=== PATIENT | male | born 1950 | race Hispanic/Latino ===

== ENCOUNTER → 2022-06-15 | Outpatient (CLI) | payer OTHER | END | disposition home or self-care (01) | LOC: RAH 13:40 | PROVIDERS: ATTEND Internal Medicine Cardiovascular Disease | DX: I08.0 Rheumatic disorders of both mitral and aortic valves (principal); I11.9 Hypertensive heart disease without heart failure | CPT/HCPCS: 93306 ==

== ENCOUNTER 2025-04-27 12:30 | Emergency (ER) | payer OTHER, MEDICARE ==
[~2025-04-27] VITALS: Ht 160 cm; Wt 77.1 kg
[2025-04-27 12:30] VITALS: O2SAT 98
--- NOTE | 2025-04-27 12:30 | NUR ---
PT PLACED IN ROOM
[2025-04-27 12:32] VITALS: BP 153/80; PULSE 65; RESP 18; TEMP 97.4
--- NOTE | 2025-04-27 12:49 | EKG ---
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
[2025-04-27 13:00] LABS: IMMATURE GRANULOCYTE ABSOLUTE 0.02 K/uL (0-1); NUCLEATED RED BLOOD CELLS 0.0 % (0.0-0.19); PLATELET COUNT (AUTO) 226 K/uL (130-400); RED BLOOD CELL COUNT(AUTO) 4.17 MIL/uL (4.50-6.20); RED CELL DISTRIBUTION WIDTH 12.5 % (11.0-15.5); WHITE BLOOD COUNT (AUTO) 6.6 K/uL (4.8-10.8)
[2025-04-27 13:07] LABS: CREATININE 1.0 mg/dL (0.5-1.3); GLOMERULAR FILTR. RATE CALC 78.0 mL/min (>90); GLUCOSE,RANDOM 171.0 mg/dL (70-105); SODIUM SERUM 136.0 mmol/L (136-145); UREA NITROGEN, BLOOD 13.0 mg/dL (7-18)
--- NOTE | 2025-04-27 13:16 | HMCIMG ---
EXAM: CT Head Without IV contrast. CLINICAL HISTORY: vision changes TECHNIQUE: Axial computed tomography images of the head/brain without intravenous contrast. COMPARISON: None provided. FINDINGS: BRAIN: No evidence of acute hemorrhage. No mass lesion. No CT evidence for acute territorial infarct. No midline shift or extra-axial collections. VENTRICLES: No hydrocephalus. ORBITS: The orbits are unremarkable. SINUSES AND MASTOIDS: The paranasal sinuses and mastoid air cells are clear. BONES: No fracture. SOFT TISSUES: Unremarkable. IMPRESSION: No acute intracranial abnormality. /[place]
--- NOTE | 2025-04-27 13:49 | ERN ---
ED Note History of Present Illness Stated Complaint: HEADACHE Chief Complaint: Headache Time Seen by MD: 12:32 Time Seen by Midlevel: 12:35 Dictation: 74-year-old male with a history of diabetes coming in with complaints of right peripheral vision loss. Patient states he woke up like this. Last known well time was yesterday at about 9:00 p.m.. Patient is also complaining of 8/10 headache. Denies having any unilateral weakness, numbness, tingling. Allergies: Coded Allergies: No Known Drug Allergies (Unverified Allergy, Unknown, 04/27/25) Past Medical History Past Medical History: Diabetes-Type II, Hypertension Surgical History: None Review of System Dictation Constitutional: Negative for fever,chills, and weight loss Eyes: Negative for injury, pain,redness, and discharge ENT: Negative for injury,pain or swelling Cardiovascular: Negative for chest pain, palpitations, and edema Respiratory: Negative for shortness of breath, cough, and wheezing, Abdomen/GI: Negative for abdominal pain, nausea, vomiting, diarrhea, and constipation Back: Negative for injury and pain : Negative for injury, bleeding and discharge MS/Extremity: Negative for injury and deformity Skin: Negative for rash, and discoloration Neuro: Negative for headache, weakness, numbness, tingling, and seizure , right- sided peripheral vision loss Psych: Negative for suicide ideation, homicidal ideation, and hallucinations Review of Systems: was completed Initial Vital Sign VS Vital Signs Date Time Temp Pulse Resp B/P (MAP) Pulse Ox O2 Delivery O2 Flow Rate FiO2 04/27/25 12:30 97.3 65 18 153/80 98 Room Air* 0 21 Physical Exam Dictation General: awake, alert, NAD Head/Face: Normocephalic, atraumatic Eyes: PERRL, EOMI, vision at baseline ENT: oral cavity clear, TMs clear, no signs of infection Neck: Trachea midline, supple, no nuchal rigidity Cardiovascular: RRR, normal S1/S2, No MRGs, no JVD Respiratory: CTAB, no respiratory distress, No rales or wheezes Abdomen: Soft, non-tender, non-distended, normal bowel sounds, no guarding or rebound. Skin: Warm, dry, normal turgor, no rash MS/Extremity: Pulses equal, no cyanosis, neurovascular intact, FROM Neuro: COAx4, GCS 15, strength 5/5, CN 2-12 intact, normal cerebellar exam, normal gait,, right-sided peripheral vision loss Psych: Normal behavior, mood, and affect normal Results (Laboratory/Radiology) Laboratory/Radiology Laboratory Tests Test 04/27/25 12:55 White Blood Count 6.6 K/uL (4.8-10.8) Red Blood Count 4.17 MIL/uL (4.50-6.20) L Hemoglobin 13.1 g/dL (14.0-18.0) L Hematocrit 37.6 % (42-54) L Mean Corpuscular Volume 90.2 fL (79-99) Mean Corpuscular Hemoglobin 31.4 pg (27.0-33.0) Mean Corpuscular Hemoglobin Concent 34.8 g/dL (32.0-36.0) Red Cell Distribution Width 12.5 % (11.0-15.5) Platelet Count 226 K/uL (130-400) Mean Platelet Volume 9.0 fL (7.5-10.5) Immature Granulocyte % (Auto) 0.3 % (0-1) Neutrophils (%) (Auto) 60.9 % (40.0-77.0) Lymphocytes (%) (Auto) 28.2 % (21.0-51.0) Monocytes (%) (Auto) 7.7 % (3.0-13.0) Eosinophils (%) (Auto) 2.4 % (0.0-8.0) Basophils (%) (Auto) 0.5 % (0.0-5.0) Neutrophils # (Auto) 4.0 K/uL (1.8-7.7) Lymphocytes # (Auto) 1.9 K/uL (1.0-4.8) Monocytes # (Auto) 0.5 K/uL (0.1-1.0) Eosinophils # (Auto) 0.16 K/uL (0.00-0.70) Basophils # (Auto) 0.03 K/uL (0.00-0.20) Absolute Immature Granulocyte (auto 0.02 K/uL (0-1) Nucleated Red Blood Cells 0.0 % (0.0-0.19) Sodium Level 136 mmol/L (136-145) Potassium Level 3.7 mmol/L (3.5-5.1) Chloride Level 100 mmol/L (101-111) L Carbon Dioxide Level 27 mmol/L (21-32) Blood Urea Nitrogen 13 mg/dL (7-18) Creatinine 1.0 mg/dL (0.5-1.3) Glomerular Filtration Rate Calc 78 mL/min (>90) Random Glucose 171 mg/dL (70-105) H Total Calcium 8.0 mg/dL (8.5-10.1) L EKG Comment: EKGs done at 12:40 p.m.. Sinus rhythm rate 63. No STEMI interpreted by ER MD CT Scan Comment: [place] [id number] [place] [address] IMAGING REPORT Signed PATIENT: OSEI MCKEON JR MR#: [id number] : 1950 SEX: M AGE: 74 LOCATION: [facility] ORDER [id number] STATUS: REG ER REPORT#: [id number] SERVICE 1238 REASON: vision changes ORDERING PHYSICIAN: JOON SANTANA CNP PROCEDURE: HEAD WO - CT HEAD/BRAIN W/O CONTRAST EXAM: CT Head Without IV contrast. CLINICAL HISTORY: vision changes TECHNIQUE: Axial computed tomography images of the head/brain without intravenous contrast. COMPARISON: None provided. FINDINGS: BRAIN: No evidence of acute hemorrhage. No mass lesion. No CT evidence for acute territorial infarct. No midline shift or extra-axial collections. VENTRICLES: No hydrocephalus. ORBITS: The orbits are unremarkable. SINUSES AND MASTOIDS: The paranasal sinuses and mastoid air cells are clear. BONES: No fracture. SOFT TISSUES: Unremarkable. IMPRESSION: No acute intracranial abnormality. /[place] DICTATED BY: LENIN PACE Jr., MD DATE: 04/27/251414 ELECTRONICALLY SIGNED BY: LENIN PACE Jr., MD DATE: 04/27/251414 ED Course ED Course Orders Procedure Category Date Status Time Cbc With Differential LAB 04/27/25 Complete 12:38 Basic Metabolic Panel LAB 04/27/25 Complete 12:38 12 Lead Ekg Tracing- EKG 04/27/25 Resulted Technical 12:38 Chest 1vw RAD 04/27/25 Resulted 12:38 Ct Head/Brain W/O CT 04/27/25 Resulted Contrast 12:38 Vital Signs Date Time Temp Pulse Resp B/P (MAP) Pulse Ox O2 Delivery O2 Flow Rate FiO2 04/27/25 12:32 97.3 65 18 153/80 98 Room Air 0 04/27/25 12:30 97.3 65 18 153/80 98 Room Air* 0 21 Medical Decision Making MDM MDM: 74-year-old male with a history of diabetes coming in with complaints of right peripheral vision loss. Patient states he woke up like this. Last known well time was yesterday at about 9:00 p.m.. Patient is also complaining of 8/10 headache. Denies having any unilateral weakness, numbness, tingling. Blood work is unremarkable. CT scan shows no acute finding.[id number] spoke to tele neurology, gave information discussed patient, Ca we will evaluate patient shortly. Patient has a NIH of 0. Greater than 4 hours for TNK, greater than 24 hours in his low NIH for any endovascular intervention. 1430 primary nurse notified me patient and son wanting to speak to me. Vital signs stable on arrival, visual acuity assist at bedside, peripheral field deficit noted in the right eye only. Patient advised regarding need for urgent diagnostic evaluation including ophthalmology consultation, possible CTAs of the head and neck to exclude any retinal or intracranial emergent pathology. Excellent benefits of further evaluation and potential consequences of delayed care. Despite understanding these risks patient declined further workup and treatment and requested to leave against medical advice. However wound did explain patient if he has any worsening symptoms he needs to return to the emergency room. Patient arrived alert and oriented x4, able to repeat risks benefits and alternatives and demonstrates decision-making capacity. Return precautions given Differential diagnosis: Stroke, intracranial mass, optic neuritis, retinal artery/vein occlusion Rationale: Tests considered and ordered secondary to shared decision making include: Previous outside records reviewed: Old ER visits. Risk of complication and/or morbidity or mortality of patient management: None Medications-Per medication reconciliation Need for hospitalization: Patient does not meet criteria for hospitalization. Need for emergency major/minor surgery: No There are no social concerns with this patient. Prescription drug management Prescriptions will include symptomatic care Patient's prior external medical records from other ER visits were reviewed by me as indicated. Prior testing and results from previous visits were reviewed. Prior tests were taken into account with medical decision making and resource utilization, independent historian/historians were used to obtain complete medical history. I independently interpreted the test that were performed, results were reviewed by me and considered findings on radiology if ordered. Medical management and examination interpretation discussions were had by me with other qualified healthcare professionals as indicated for the patient's care. DX & DISP Disposition: AMA Departure Impression: Primary Impression: Peripheral visual field defect of right eye Condition: Stable Referrals: ROYER VASQUEZ (PCP) Time of Disposition: 14:33 I have reviewed the case, and I agree with, Diagnosis and Plan JOON SANTANA [facility] Apr 27, 2025 13:49
--- NOTE | 2025-04-27 14:10 | HMCIMG ---
EXAM: CR Chest, 1 View. CLINICAL HISTORY: headache COMPARISON: None provided. FINDINGS: LUNGS: There is no mass, infiltrate, or acute pulmonary abnormality. PLEURAL SPACES: No pleural effusion or pneumothorax. MEDIASTINUM: Cardiac size and mediastinal contours within normal limits. BONES: No acute osseous abnormality. IMPRESSION: No acute cardiopulmonary pathology is evident. /[place]
--- NOTE | 2025-04-27 14:27 | NUR ---
PT STATED THAT HE DID NOT WANT TO WAIT FOR THE NEUROLOGY CONSULT DUE TO THE NEUROLOGIST TAKE A WHILE. THE PT WAS INFORMED THE REASON FOR CONSULT. PT STATED THAT HE WANTED TO LEAVE.
--- NOTE | 2025-04-27 14:29 | NUR ---
RICHARD DUPREE WAS INFORMED THAT THAT PT WANTED TO LEAVE AMA. RICHARD DUPREE EXPLAINED TO THE PT THE REASON FOR THE NEUROLOGY CONSULT, AND THAT IT WAS IN THE PATIENT'S BEST INSTREST TO WAIT FOR THE NEUROLOGIST'S RECOMMENDATION SINCE THE PATIENT WAS EXPERIENCING RIGHT EYE VISION LOST. PT STATED" GET THE PAPERS READY I AM LEAVING". PT WAS ADVISED ON THE RISKES OF LEAVING AGAINST MEDICAL ADVICE AND TO GO TO THE NEAREST EMERGENCY CENTER IF SYMTOMS WORSEN. PT IS ALERT AND ORIENTED X4. DISCHARGED AGAINT MEDICAL ADVICE FORM WAS SIGNED BY THE PATIENT.
--- NOTE | 2025-04-27 14:30 | NUR ---
PT LEFT AFTER SIGNING AMA FORM. PT IS STABLE WITH A STEADY GAIT. PT IS ALERT AND ORIENTED X4.
== END 2025-04-27 14:30 | disposition left against medical advice (07) ==
LOC: EDH 12:30
DX: H53.451 Other localized visual field defect, right eye (principal); E11.9 Type 2 diabetes mellitus without complications; I10 Essential (primary) hypertension
CPT/HCPCS: 36415; 70450; 71045; 80048; 85025; 93005; 99285